=== PATIENT | male | born 2000 | race Caucasian/White ===

== ENCOUNTER 2021-05-31 05:25 | Emergency (ER) | payer MEDICAID ==
[2021-05-31 05:37] VITALS: BP 132/56
--- NOTE | 2021-05-31 06:03 | ED Physician Documentation ---
PD HPI ABD PAIN - Stated complaint Stated Complaint: ABD PX - Chief complaint Chief Complaint: General - History obtained from History obtained from: Patient - History of Present Illness Timing - onset: Yesterday Timing - duration: Days (1) Timing - details: Abrupt onset, Still present Quality: Sharp, Pain Location: Suprapubic Radiation: No: Chest, , Lower back, Left flank, Left shoulder, Right flank, Right shoulder, Upper back Improved by: Laying still Worsened by: Moving, Palpation Associated symptoms: Nausea, Vomiting (with initiation of the pain) Similar symptoms before: Diagnosis (muscle strain) Recently seen: Not recently seen - Additional information Additional information: Previously well 6 foot six 7 inch 20-year-old male 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 He felt a sudden pain in the suprapubic area and this pain was bad enough that it made him instantly nauseous and vomit. He had soreness following that and he continue to work. He woke up this morning with pain with movement and the patient's fianc is insisted he comes to the emergency department for evaluation. The patient himself states he thinks he is just strained a muscle in his abdomen he does not feel any masses in the area he does not think he has a hernia he has pain with movement now. He is comfortable when he is laying still. He does not have nausea now. The nausea and vomiting was only at the initiation of symptoms. Review of Systems Constitutional: denies: Fever Eyes: denies: Decreased vision Ears: denies: Ear pain Nose: denies: Congestion Throat: denies: Sore throat Cardiac: denies: Chest pain / pressure, Palpitations Respiratory: denies: Dyspnea, Cough GI: reports: Abdominal Pain, Nausea (resolved), Vomiting (resolved) : denies: Dysuria, Frequency Skin: denies: Rash Musculoskeletal: denies: Neck pain, Back pain, Extremity pain Neurologic: denies: Generalized weakness, Focal weakness, Numbness PD PAST MEDICAL HISTORY - Past Medical History Past Medical History: No Cardiovascular: None Respiratory: None Neuro: None Endocrine/Autoimmune: None GI: None : None HEENT: None Psych: None Musculoskeletal: None Derm: None - Past Surgical History Past Surgical History: Yes Ortho: Other - Present Medications Home Medications: Ambulatory Orders Medication Instructions Recorded Confirmed No Known Home Medications 05/31/21 05/31/21 - Allergies Allergies/Adverse Reactions: Allergies Allergy/AdvReac Type Severity Reaction Status Date / Time bee sting AdvReac Unknown Uncoded 05/31/21 05:37 - Social History Does the pt smoke?: No Smoking Status: Never smoker Does the pt drink ETOH?: No Does the pt have substance abuse?: No - Immunizations Immunizations are current?: Yes - POLST Patient has POLST: No PD ED PE NORMAL - Vitals Vital signs reviewed: Yes (normal ) - General General: Alert and oriented X 3, No acute distress, Well developed/nourished, Other (tall 20 y/o male in no distress is confident in himself. ) - HEENT HEENT: Atraumatic, PERRL, EOMI - Neck Neck: Supple, no meningeal sign - Cardiac Cardiac: RRR, No murmur - Respiratory Respiratory: No respiratory distress, Clear bilaterally - Abdomen Abdomen: Normal bowel sounds, Soft, Non distended, No organomegaly, Other (mild midline tenderness to the middle of the rectus just above the pubic symphisis. No masses and no garding. No referred tenderness and no other tenderness. 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 He is not interested in pain management as he states his pain is not severe in any way and he is not wanting pain medication. I asked the patient to fill out his L&I paperwork and he is somewhat reluctant to that stating he will deal with that with his boss. I have indicated the patient he may need to be off work for 10 to 14 days. Departure - Departure Disposition: 01 Home, Self Care Clinical Impression: Abdominal wall strain Qualifiers: Encounter type: initial encounter Qualified Code(s): S39.011A - Strain of muscle, fascia and tendon of abdomen, initial encounter Condition: Stable Instructions: ED Strain Abdominal Muscle Follow-Up: [facility] [Provider Group] Forms: Activity restrictions
== END 2021-05-31 06:22 | disposition home or self-care (01) ==
LOC: ED 05:25
DX: S39.011A Strain of muscle, fascia and tendon of abdomen, initial encounter (principal); X50.0XXA Overexertion from strenuous movement or load, initial encounter
CPT/HCPCS: 99282

== ENCOUNTER 2021-07-05 21:45 | Emergency (ER) | payer MEDICAID ==
[2021-07-05 22:07] VITALS: BP 140/72
[2021-07-05] MEDS ORDERED: ONDANSETRON ODT 4 MG Prepack 2 TL PRN (23:26)
--- NOTE | 2021-07-05 23:27 | ED Physician Documentation ---
History of Present Illness - Stated complaint Stated Complaint: STOMACH PAIN/VOMITING - Chief complaint Chief Complaint: Abd Pain - History obtained from History obtained from: Patient - Additonal information Additional information: 20-year-old, previously healthy presents with nausea and vomiting this evening after eating some questionable meat around 4 5 PM. Patient states that he noticed some blood streaks in his vomitus. Also endorses diffuse cramping mild abdominal pain that is improving on its own.denies fever, back pain , urinary sx, diarrhea. Review of Systems Ten Systems: 10 systems reviewed and negative Constitutional: denies: Fever, Chills Cardiac: denies: Chest pain / pressure Respiratory: denies: Dyspnea GI: reports: Abdominal Pain, Nausea, Vomiting. denies: Diarrhea : denies: Dysuria Musculoskeletal: denies: Back pain PD PAST MEDICAL HISTORY - Past Medical History Past Medical History: No Cardiovascular: None Respiratory: None Neuro: None Endocrine/Autoimmune: None GI: None : None HEENT: None Psych: None Musculoskeletal: None Derm: None - Past Surgical History Past Surgical History: Yes Ortho: Other - Present Medications Home Medications: Ambulatory Orders Medication Instructions Recorded Confirmed No Known Home Medications 05/31/21 07/05/21 - Allergies Allergies/Adverse Reactions: Allergies Allergy/AdvReac Type Severity Reaction Status Date / Time bee sting AdvReac Unknown Uncoded 07/05/21 22:07 - Social History Does the pt smoke?: No Smoking Status: Never smoker Does the pt drink ETOH?: No Does the pt have substance abuse?: No - Immunizations Immunizations are current?: Yes - POLST Patient has POLST: No PD ED PE NORMAL - Vitals Vital signs reviewed: Yes - General General: Alert and oriented X 3, No acute distress, Well developed/nourished - HEENT HEENT: Atraumatic, PERRL, EOMI - Neck Neck: Supple, no meningeal sign - Cardiac Cardiac: RRR - Respiratory Respiratory: No respiratory distress, Clear bilaterally - Abdomen Abdomen: Non tender, Non distended - Back Back: No CVA TTP - Derm Derm: Normal color, Warm and dry - Extremities Extremities: No deformity - Neuro Neuro: Alert and oriented X 3 - Psych Psych: Normal mood, Normal affect Results - Vitals Vitals: Vital Signs - 24 hr 07/05/21 22:01 Temperature 36.2 C L Heart Rate 86 Respiratory 14 Rate Blood Pressure 140/72 H O2 Saturation 98 Oxygen O2 Source Room air PD MEDICAL DECISION MAKING - ED course ED course: 19-year-old male presents with likely food poisoning. Return precautions given. Symptomatic care provided. Plan to follow-up with primary doctor. Departure - Departure Disposition: 01 Home, Self Care Clinical Impression: Nausea and vomiting, Abdominal pain Condition: Good Instructions: Poisoning Food Prevent Comments: You are seen in the emergency department for nausea and vomiting. For that you are feeling better. You can take Zofran every 6 hours as needed for nausea. Please return to the emergency department if you experience fevers, any new or worsening symptoms or if you have other concerns. Plan to follow-up with your primary doctor tomorrow.
== END 2021-07-05 23:52 | disposition home or self-care (01) ==
LOC: ED 21:45
DX: R11.2 Nausea with vomiting, unspecified (principal); R10.9 Unspecified abdominal pain
CPT/HCPCS: 99282; 99283

== ENCOUNTER 2022-06-12 08:43 | Emergency (ER) | payer MEDICAID ==
[2022-06-12 08:58] VITALS: BP 144/71
--- NOTE | 2022-06-12 09:12 | ED Physician Documentation ---
PD HPI LOWER EXT INJURY - Stated complaint Stated Complaint: LT LEG INJ - Chief complaint Chief Complaint: Ext Problem - History obtained from History obtained from: Patient - History of Present Illness PD HPI LOW EXT INJURY LOCATION: Left - Additional information Additional information: He was taking a large gun safe upper ramp yesterday with a jaja and it slipped and the bar of the jaja hit him in the mid anterior left thigh. Pain was not bad yesterday but is worse today. He is still able to walk and bear weight but it is fairly painful when he does that. Minimal pain at rest. He declines pain medication initial evaluation. Review of Systems Constitutional: reports: Reviewed and negative Eyes: reports: Reviewed and negative Ears: reports: Reviewed and negative Nose: reports: Reviewed and negative Throat: reports: Reviewed and negative Cardiac: reports: Reviewed and negative Respiratory: reports: Reviewed and negative PD PAST MEDICAL HISTORY - Past Medical History Past Medical History: Yes Cardiovascular: None Respiratory: None Neuro: Headaches Endocrine/Autoimmune: None GI: None : None HEENT: None Psych: None Musculoskeletal: None Derm: None - Past Surgical History Past Surgical History: Yes Ortho: Other - Present Medications Home Medications: Ambulatory Orders Medication Instructions Recorded Confirmed Ibuprofen [Motrin] 800 mg PO Q8H PRN #30 tablet 06/12/22 - Allergies Allergies/Adverse Reactions: Allergies Allergy/AdvReac Type Severity Reaction Status Date / Time bee sting AdvReac Unknown Uncoded 06/12/22 08:55 - Social History Does the pt smoke?: No Smoking Status: Never smoker Does the pt drink ETOH?: No Does the pt have substance abuse?: No - Immunizations Immunizations are current?: Yes - POLST Patient has POLST: No PD ED PE NORMAL - Vitals Vital signs reviewed: Yes - General General: Alert and oriented X 3, No acute distress - Extremities Extremities: Other (He has muscular tenderness of the left anterior thigh with some ecchymosis there. No tense compartments. He is able to walk with a limp. No knee or hip tenderness.) - Neuro Neuro: Alert and oriented X 3, Normal speech Results - Vitals Vitals: Vital Signs - 24 hr 06/12/22 08:55 Temperature 36.8 C Heart Rate 92 Respiratory 16 Rate Blood Pressure 144/71 H O2 Saturation 100 Oxygen O2 Source Room air - Rads (name of study) 2 view x-ray of the left femur is negative. Radiology: EMP read contemporaneously PD MEDICAL DECISION MAKING - ED course ED course: Compartment syndrome is considered, but with minimal pain at rest, no tense compartments, and no pain with passive movement of the knee with flexion extension this is considered very unlikely. Departure - Departure Disposition: 01 Home, Self Care Clinical Impression: Contusion of left leg Condition: Good Record reviewed to determine appropriate education?: Yes Instructions: ED Contusion Lower Ext Prescriptions: Ibuprofen [Motrin] 800 mg PO Q8H PRN #30 tablet PRN Reason: PAIN &/OR FEVER Comments: Tylenol and/or ibuprofen as needed for pain, ice and elevate. Return for new or worsening symptoms. Follow-up with your doctor in a week if not better. Discharge Date/Time: 06/12/22 09:37
--- NOTE | 2022-06-12 09:38 | XRAY Report ---
PROCEDURE: Femur 2V LT INDICATIONS: leg inj TECHNIQUE: 2 views of the femur were acquired. COMPARISON: None. FINDINGS: Bones: No fractures or dislocations. No suspicious bony lesions. Soft tissues: No suspicious soft tissue calcifications or masses. IMPRESSION: No visualized acute fracture or dislocation. However, occult injury cannot be excluded. Recommend jose elias rt interval imaging follow-up in 7-10 days as clinically indicated for additional evaluation. Reviewed by: Gale Oakes MD on 06/12/2022 9:36 AM PDT Approved by: Gale Oakes MD on 06/12/2022 9:36 AM PDT Station ID: [id number]
== END 2022-06-12 09:37 | disposition home or self-care (01) ==
LOC: ED 08:43
DX: S70.12XA Contusion of left thigh, initial encounter (principal); W20.8XXA Other cause of strike by thrown, projected or falling object, initial encounter; Y93.89 Activity, other specified
CPT/HCPCS: 99282; 99283

== ENCOUNTER 2022-07-10 14:04 | Emergency (ER) | payer MEDICAID ==
--- NOTE | 2022-07-10 14:20 | ED Physician Documentation ---
History of Present Illness - Stated complaint Stated Complaint: SOA/CONGESTION/BODY ACHES - Chief complaint Chief Complaint: General - History obtained from History obtained from: Patient - Additonal information Additional information: Previously healthy 21-year-old has had about 10 days of illness starting with a sore throat but developing more of a productive cough with shortness of breath, fevers, and burning pain of the ears and throat. He is taken 3 recent COVID test at home which were all negative. Review of Systems Constitutional: reports: Fever, Chills Ears: reports: Ear pain Nose: reports: Rhinorrhea / runny nose, Congestion Throat: reports: Sore throat Respiratory: reports: Dyspnea, Cough PD PAST MEDICAL HISTORY - Past Medical History Cardiovascular: None Respiratory: None Neuro: Headaches Endocrine/Autoimmune: None GI: None : None HEENT: None Psych: None Musculoskeletal: None Derm: None - Past Surgical History Past Surgical History: Yes Ortho: Other - Present Medications Home Medications: Ambulatory Orders Medication Instructions Recorded Confirmed Ibuprofen [Motrin] 800 mg PO Q8H PRN #30 tablet 06/12/22 Amoxicillin 2 tab PO TID #30 cap 07/10/22 Azithromycin [Zithromax] 1 tab PO DAILY #6 tablet 07/10/22 - Allergies Allergies/Adverse Reactions: Allergies Allergy/AdvReac Type Severity Reaction Status Date / Time bee sting AdvReac Unknown Uncoded 07/10/22 14:07 - Social History Does the pt smoke?: No Smoking Status: Never smoker Does the pt drink ETOH?: No Does the pt have substance abuse?: No - Immunizations Immunizations are current?: Yes - POLST Patient has POLST: No PD ED PE NORMAL - Vitals Vital signs reviewed: Yes - General General: Alert and oriented X 3, No acute distress - HEENT HEENT: PERRL, EOMI, Other (TMs are normal, reddening of the posterior oropharynx without swelling or exudates.) - Neck Neck: Supple, no meningeal sign, No bony TTP - Cardiac Cardiac: Other (Tachycardic but regular without murmur) - Respiratory Respiratory: No respiratory distress, Other (Coarse rhonchi at right greater than left base) - Abdomen Abdomen: Non tender - Derm Derm: No rash - Neuro Neuro: Alert and oriented X 3, Normal speech Results - Vitals Vitals: Vital Signs - 24 hr 07/10/22 07/10/22 07/10/22 14:07 14:12 16:12 Temperature 37.9 C 37.9 C Heart Rate 130 H 130 H 99 Respiratory 16 16 14 Rate Blood Pressure 133/60 H 133/60 H 127/69 O2 Saturation 97 97 98 Oxygen O2 Source Room air - Labs Labs: Laboratory Tests 07/10/22 07/10/22 07/10/22 14:40 14:40 14:40 WBC 19.4 H RBC 4.60 L Hgb 14.2 Hct 41.2 L MCV 89.6 MCH 30.9 MCHC 34.5 RDW 11.6 L Plt Count 243 MPV 12.1 H Neut # (Auto) 15.2 H Lymph # (Auto) 2.4 Lamb # (Auto) 1.7 H Eos # (Auto) 0.0 Baso # (Auto) 0.1 Absolute Nucleated RBC 0.00 Band Neuts % (Manual) Not Reportable Abnorm Lymph % (Manual) Not Reportable Nucleated RBC % 0.0 Neutrophils # (Manual) Not Reportable Lymphocytes # (Manual) Not Reportable Monocytes # (Manual) Not Reportable Eosinophils # (Manual) Not Reportable Basophils # (Manual) Not Reportable Differential Comment MANUAL=AUTO DIFF Manual Slide Review Indicated Platelet Estimate NORMAL (130-450,000) Platelet Morphology NORMAL APPEARANCE RBC Morph Micro Appear NORMAL APPEARANCE Sodium 137 Potassium 3.5 Chloride 101 Carbon Dioxide 20 L Anion Gap 16.0 H BUN 12 Creatinine 0.9 Estimated GFR (MDRD) 108 Glucose 101 H Lactic Acid 2.2 Calcium 9.6 Nasal Adenovirus (PCR) Nasal B. parapertussis DNA (PCR) Nasal Coronavir 229E PCR Nasal Coronavir HKU1 PCR Nasal Coronavir NL63 PCR Nasal Coronavir OC43 PCR Nasal Enterovir/Rhinovir PCR Nasal Influenza B PCR Nasal Influenza A PCR Nasal Parainfluen 1 PCR Nasal Parainfluen 2 PCR Nasal Parainfluen 3 PCR Nasal Parainfluen 4 PCR Nasal RSV (PCR) Nasal B.pertussis DNA PCR Nasal C.pneumoniae (PCR) Rajat Human Metapneumo PCR Nasal M.pneumoniae (PCR) Nasal SARS-CoV-2 (PCR) 07/10/22 14:40 WBC RBC Hgb Hct MCV MCH MCHC RDW Plt Count MPV Neut # (Auto) Lymph # (Auto) Lamb # (Auto) Eos # (Auto) Baso # (Auto) Absolute Nucleated RBC Band Neuts % (Manual) Abnorm Lymph % (Manual) Nucleated RBC % Neutrophils # (Manual) Lymphocytes # (Manual) Monocytes # (Manual) Eosinophils # (Manual) Basophils # (Manual) Differential Comment Manual Slide Review Platelet Estimate Platelet Morphology RBC Morph Micro Appear Sodium Potassium Chloride Carbon Dioxide Anion Gap BUN Creatinine Estimated GFR (MDRD) Glucose Lactic Acid Calcium Nasal Adenovirus (PCR) NOT DETECTED Nasal B. parapertussis DNA (PCR) NOT DETECTED Nasal Coronavir 229E PCR NOT DETECTED Nasal Coronavir HKU1 PCR NOT DETECTED Nasal Coronavir NL63 PCR NOT DETECTED Nasal Coronavir OC43 PCR NOT DETECTED Nasal Enterovir/Rhinovir PCR NOT DETECTED Nasal Influenza B PCR NOT DETECTED Nasal Influenza A PCR NOT DETECTED Nasal Parainfluen 1 PCR NOT DETECTED Nasal Parainfluen 2 PCR NOT DETECTED Nasal Parainfluen 3 PCR NOT DETECTED Nasal Parainfluen 4 PCR NOT DETECTED Nasal RSV (PCR) NOT DETECTED Nasal B.pertussis DNA PCR NOT DETECTED Nasal C.pneumoniae (PCR) NOT DETECTED Rajat Human Metapneumo PCR NOT DETECTED Nasal M.pneumoniae (PCR) NOT DETECTED Nasal SARS-CoV-2 (PCR) NOT DETECTED PD MEDICAL DECISION MAKING - ED course ED course: He has clinical pneumonia, this is not necessarily corroborated on chest x-ray which looks fairly clear. He was tachycardic on arrival but this got much better with the administration of IV fluids and Motrin. He has fairly significant leukocytosis but appears well. Bio fire panel for viral pathology was negative. He was administered IV Rocephin here and remained well-appearing and nontoxic prior to discharge. Departure - Departure Disposition: 01 Home, Self Care Clinical Impression: Pneumonia Qualifiers: Pneumonia type: due to unspecified organism Laterality: bilateral Lung location: lower lobe of lung Qualified Code(s): J18.9 - Pneumonia, unspecified organism Condition: Good Instructions: Pneumonia Dc Prescriptions: Amoxicillin 2 tab PO TID #30 cap Azithromycin [Zithromax] 1 tab PO DAILY #6 tablet Comments: Call your doctor to arrange a follow-up appointment, make the next available appointment. In the interim, return anytime if worse or if new symptoms develop. Discharge Date/Time: 07/10/22 16:45
[2022-07-10] MEDS ORDERED: IBUPROFEN 800 MG TABLET PO STA (14:21)
[2022-07-10] MEDS ORDERED: SODIUM CHLORIDE 0.9% 1,000 ML IV STA (14:21)
--- NOTE | 2022-07-10 14:36 | XRAY Report ---
PROCEDURE: Chest 2 View X-Ray INDICATIONS: cough TECHNIQUE: 2 view(s) of the chest. COMPARISON: None. FINDINGS: Surgical changes and devices: None. Lungs and pleura: No pleural effusions or pneumothorax. Lungs are clear. Mediastinum: Mediastinal contours are normal. Heart size is normal. Bones and chest wall: No suspicious bony abnormalities. Soft tissues appear unremarkable. IMPRESSION: No acute cardiopulmonary findings. Reviewed by: Lizzette Recinos MD on 07/10/2022 2:35 PM PDT Approved by: Lizzette Recinos MD on 07/10/2022 2:35 PM PDT Station ID: [id number]
[2022-07-10 14:58] LABS: BASOPHILS # (AUTO) 0.1 10^3/uL (0.0-0.1); BASOPHILS % (AUTO) 0.4 %; EOSINOPHILS % (AUTO) 0.1 %; HCT - HEMATOCRIT 41.2 % (42.0-52.0); HGB - HEMOGLOBIN 14.2 g/dL (14.0-18.0); LYMPHOCYTES # (AUTO) 2.4 10^3/uL (1.5-3.5); LYMPHOCYTES % (AUTO) 12.1 %; MEAN CORPUSCULAR HEMOGLOBIN 30.9 pg (27.0-31.0); MEAN CORPUSCULAR HGB CONC 34.5 g/dL (32.0-36.0); MEAN CORPUSCULAR VOLUME 89.6 fL (80.0-94.0); MEAN PLATELET VOLUME 12.1 fL (7.4-11.4); MONOCYTES # (AUTO) 1.7 10^3/uL (0.0-1.0); MONOCYTES % (AUTO) 8.7 %; NEUTROPHILS # (AUTO) 15.2 10^3/uL (1.5-6.6); NEUTROPHILS % (AUTO) 78.3 %; PLT - PLATELET COUNT 243 10^3/uL (130-450); RED CELL DISTRIBUTION WIDTH 11.6 % (12.0-15.0); WHITE BLOOD COUNT 19.4 x10^3/uL (4.8-10.8)
[2022-07-10 14:59] LABS: CALCIUM 9.6 mg/dL (8.5-10.3); CREATININE 0.9 mg/dL (0.6-1.2); POTASSIUM 3.5 mmol/L (3.5-5.0)
[2022-07-10 15:14] LABS: SLIDE REVIEW? Indicated
[2022-07-10] MEDS ORDERED: cefTRIAXone 2 GM in SODIUM CHLORIDE 0.9% MINIBAG 100 ML IV STA (15:22)
[2022-07-10 15:27] LABS: DIFFERENTIAL COMMENT MANUAL=AUTO DIFF; PLATELET ESTIMATE, MANUAL NORMAL (130-450,000) (NORMAL); PLATELET MORPHOLOGY NORMAL APPEARANCE (NORMAL); RBC MORPHOLOGY (MULTIPLE) NORMAL APPEARANCE (NORMAL)
[2022-07-10 15:53] LABS: B. PARAPERTUSSIS- RESP PCR PAN NOT DETECTED; B. PERTUSSIS- RESP PCR PANEL NOT DETECTED; C. PNEUMONIAE- RESP PCR PANEL NOT DETECTED; CORONAVIRUS 229E-RESP PCR NOT DETECTED; CORONAVIRUS HKU1-RESP PCR NOT DETECTED; CORONAVIRUS NL63-RESP PCR NOT DETECTED; CORONAVIRUS OC43-RESP PCR NOT DETECTED; HUMAN METAPNEUMOVIRUS NOT DETECTED; INFLUENZA A- RESP PCR PANEL NOT DETECTED; INFLUENZA B - RESP PCR PANEL NOT DETECTED; M. PNEUMONIAE- RESP PCR PANEL NOT DETECTED; PARAINFLUENZA VIRUS 1 NOT DETECTED; PARAINFLUENZA VIRUS 2 NOT DETECTED; PARAINFLUENZA VIRUS 3 NOT DETECTED; PARAINFLUENZA VIRUS 4 NOT DETECTED; RHINOVIRUS/ENTEROVIRUS NOT DETECTED; RSV- RESP PCR PANEL NOT DETECTED; SARS-CoV-2 -RESP PCR PANEL NOT DETECTED
[2022-07-10 16:12] VITALS: BP 127/69
== END 2022-07-10 16:45 | disposition home or self-care (01) ==
LOC: ED 14:04
DX: J18.9 Pneumonia, unspecified organism (principal); Z20.822 Contact with and (suspected) exposure to COVID-19
CPT/HCPCS: 36415; 71046; 80048; 83605; 85025; 87633; 96361; 96365; 99284; A9270